=== PATIENT | female | born 1945 | race Caucasian/White ===

== ENCOUNTER 2016-12-18 14:34 | Emergency (ER) | payer OTHER ==
[2016-12-18 16:34] LABS: CALCIUM 9.3 mg/dL (8.5-10.1); CARBON DIOXIDE 30.4 mmol/L (21-32); CHLORIDE SERUM 102 mmol/L (98-107); CREATININE SERUM 1.2 mg/dL (0.6-1.0); GLUCOSE SERUM 96 mg/dL (74-106); SODIUM SERUM 139 mmol/L (136-145)
[2016-12-18 16:36] LABS: BASOPHIL % 0.4 % (0-2); PLATELET COUNT 243 x10^3mcL (130-400)
[2016-12-18 16:38] LABS: ALBUMIN 3.8 g/dL (3.4-5.0); ALKALINE PHOSPHATASE 118 U/L (46-116); ALT/SGPT 41 U/L (14-59); AST/SGOT 25 U/L (15-37); BILIRUBIN TOTAL 0.2 mg/dL (0.20-1.00); CHOLESTEROL 268 mg/dL (<200)
[2016-12-18 16:42] LABS: RED CELL DISTRIBUTION WIDTH 14.7 % (11.5-14.5)
[2016-12-18 19:00] VITALS: BP 136/77
== END 2016-12-18 19:00 | disposition left against medical advice (07) ==
LOC: ED 14:34
PROVIDERS: Specialist
DX: R20.2 Paresthesia of skin (principal); I10 Essential (primary) hypertension; E11.9 Type 2 diabetes mellitus without complications
CPT/HCPCS: 83880; G0480; Q0092

== ENCOUNTER 2018-12-20 22:50 | Emergency (ER) | payer OTHER ==
[~2018-12-20] VITALS: Ht 144.8 cm; Wt 55.3 kg
[2018-12-20 23:04] VITALS: Ht 144.8 cm; Wt 55.3 kg
[2018-12-21 00:01] LABS: PLATELET COUNT 244 x10^3mcL (130-400); RED CELL DISTRIBUTION WIDTH 14.4 % (11.5-14.5)
[2018-12-21 00:27] LABS: CALCIUM 8.9 mg/dL (8.5-10.1); CARBON DIOXIDE 28.6 mmol/L (21-32); CHLORIDE SERUM 96 mmol/L (98-107); CREATININE SERUM 1.6 mg/dL (0.6-1.0); GLUCOSE SERUM 122 mg/dL (74-106); POTASSIUM SERUM 3.4 mmol/L (3.5-5.1); SODIUM SERUM 135 mmol/L (136-145)
[2018-12-21 00:30] LABS: ALKALINE PHOSPHATASE 88 U/L (46-116); ALT/SGPT 43 U/L (14-59); AST/SGOT 21 U/L (15-37); LIPASE 200 IU/L (73-393); TOTAL PROTEIN, SERUM 7.1 g/dL (6.4-8.2)
[2018-12-21 00:33] LABS: ALBUMIN 2.5 g/dL (3.4-5.0)
[2018-12-21 00:34] LABS: BAND NEUTROPHIL 10 % (0-10); BASOPHIL 0 % (0-2); MONOCYTE 5 % (0-7); SEGMENTED NEUTROPHILS 74 % (37-75)
[2018-12-21 00:35] LABS: PLATELET MORPHOLOGY PLATELETS NORMAL; rbc morphology (normal/abnorm) NORMAL (NORMAL)
[2018-12-21 02:20] VITALS: BP 105/57
== END 2018-12-21 02:21 | disposition home or self-care (01) ==
LOC: ED 22:50
PROVIDERS: Emergency Medicine
DX: K29.70 Gastritis, unspecified, without bleeding (principal); E86.0 Dehydration; I10 Essential (primary) hypertension; E11.9 Type 2 diabetes mellitus without complications; Z90.49 Acquired absence of other specified parts of digestive tract
CPT/HCPCS: 82962; J2405; J7030

== ENCOUNTER 2018-12-23 17:42 | Inpatient (IN) | payer OTHER ==
[~2018-12-23] VITALS: Ht 144.8 cm; Wt 55.0 kg
--- NOTE | 2018-12-23 18:23 | NUR ---
SON BRINGS IN MOTHER BECAUSE [facility] HAD CALLED HIM WITH ABNORMAL LABS, WAS SEEN HERE 3 DAYS AGO FOR GI SYMPTOMS. HE REPORTS PT HAS A CHOLECYSTECTOMY 6 DAYS AGO, HOWEVER HAS NOT BEEN FEELING ANY MUCH BETTER. CONTINUES WITH EPIGATSRIC ABDOMINAL PAIN, MORE AFTER EATING. ALSO HAS DRY MOUTH. REPORTS NAUSEA HAS DECREASED SIGNIFICANTLY AFTER BEING PRESCRIBED ZOFRAN. PT CONTINUES WITH DECREASED APPPETITE. SKIN JAUNDICED IN COLOR NOTED, BUT SON STATES SHE LOOKS PALE IN COLOR. SON ALSO REPORTS SHE'S BEEN COMPLAIJING OF GENERALIZED BODY ACHE. DENIES FEVERS/CHILLS. RESP EVEN AND UNLABORED, DENIES ANY SOB OR CP. SAFETY MEAURES INPLACE, WILL CONT TO MONITOR. AWAITING MSE.
--- NOTE | 2018-12-23 19:08 | NUR ---
REPORT RECEIVED FROM ROSIE AGENCY RN
[2018-12-23 19:09] LABS: BASOPHIL % 0.1 % (0-2); PLATELET COUNT 303 x10^3mcL (130-400)
[2018-12-23 19:11] LABS: RED CELL DISTRIBUTION WIDTH 14.7 % (11.5-14.5)
[2018-12-23 19:17] LABS: CALCIUM 8.6 mg/dL (8.5-10.1); CARBON DIOXIDE 28.1 mmol/L (21-32); CHLORIDE SERUM 98 mmol/L (98-107); CREATININE SERUM 0.9 mg/dL (0.6-1.0); GLUCOSE SERUM 103 mg/dL (74-106); POTASSIUM SERUM 3.3 mmol/L (3.5-5.1); SODIUM SERUM 134 mmol/L (136-145)
[2018-12-23 19:23] LABS: ALKALINE PHOSPHATASE 93 U/L (46-116); ALT/SGPT 31 U/L (14-59); AST/SGOT 27 U/L (15-37); TOTAL PROTEIN, SERUM 6.9 g/dL (6.4-8.2)
[2018-12-23 19:26] LABS: ALBUMIN 2.2 g/dL (3.4-5.0)
[2018-12-23 19:53] LABS: UA SPECIFIC GRAVITY <=1.005 (1.005-1.035); microscopic required? YES; urine erythrocyte 1+ (NEGATIVE)
--- NOTE | 2018-12-23 20:09 | NUR ---
PER SON PT TAKES UNKNOWN BP MEDICATION 1 X PER DAY
--- NOTE | 2018-12-23 21:22 | NUR ---
REPORT GIVEN TO IVANNA GUTIERRES. IVANNA AWARE WE ARE WAITING FOR RESULTS OF CT BEFORE PT WILL BE ADMITTED UPSTAIRS
[2018-12-23 21:55] LABS: AMPHETAMINE QUAL UR NONE DETECTED (See below)
--- NOTE | 2018-12-23 23:14 | NUR ---
PRIMARY RN IVANNA MADE AWARE PT IS COMING UP AT THIS TIME
--- NOTE | 2018-12-23 23:17 | NUR ---
RECEIVED PT FROM ED VIA [facility], CAME IN DUE TO ABNORMAL LAB WORKS. AAOX4. DENIES HEADACHE/DIZZINESS. ABLE TO FOLLOW COMMANDS. NO SOB NOTED, LUNG SOUNDS CTA. DENIES CHEST PAIN/PRESSURE. DENIES ABDOMINAL PAIN/NAUSEA/VOMITING. ABDOMEN IS DISTENDED AND SOFT. BOWEL SOUNDS ACTIVE. HAD BM TODAY. VOIDS. W/ 5 SURGICAL INCISIONS ON THE ABDOMEN AND HAS ECCHYMOSIS AROUND THE SURGICAL INCISION ON THE UPPER MID ABDOMEN. W/ DERMABONDS ON THE SURGICAL INCISIONS, CDI. JAUNDICE NOTED. IV SITE ON THE RAC IS PATENT AND INTACT. SIDE RAILS UPX2. CALL LIGHT ON REACH. ENDORSED TO PRIMARY NURSE IVANNA FOR CONTINUITY OF CARE
[2018-12-23 23:28] VITALS: BP 147/58
[2018-12-23 23:39] VITALS: Ht 144.8 cm; Wt 55.0 kg
[2018-12-24 06:06] VITALS: BP 139/58
--- NOTE | 2018-12-24 06:28 | NUR ---
PT WITH C/O OF BACK ARCHING AT THE SCALE OF 6/10,PT WAS MEDICATED WITH NORCO 1 TAB PO ORDER AND WILL CONTINUE TO MONITOR.
--- NOTE | 2018-12-24 08:17 | NUR ---
RECEIVED REPORT FROM IVANNA GUTIERRES AT 0705. PATIENT AND PATIENT'S SON INSISTING THAT THEY DO NOT WANT TO BE IN THE HOSPITAL AND PLAN TO LEAVE REGARDLESS OF DOCTOR RECOMMENDATIONS. DISCUSSED IN DETAIL WITH ASSISTANCE OF STUDENT NURSECANDELARIA, WHO IS FLUENT IN [place], NEED FOR IV ANTIBIOTICS, BACTEREMIA, POSSIBILITY OF ABSCESS IN ABDOMEN, NEED FOR ULTRASOUND. THEY CONTINUE TO REFUSE AND INSIST THEY WANT TO LEAVE. PRINTED AMA FORMS WHICH PATIENT'S SON SIGNED PER SON, SHE IS NOT ABLE TO WRITE NAME. PATIENT VERBALLY AGREES TO LEAVE WITH SON AND REFUSES FURTHER MEDICAL TREATMENT. CHARGE NURSENAKUL INFORMED. DR. RIVERA PAGED AND SHE CAME TO ROOM AND DISCUSSED IN DETAIL WITH SON NEED FOR PATIENT TO RECEIVE TREATMENT IN HOSPITAL. SHE ALSO EMPHASIZED THAT IF THEY LEAVE AMA, THEY MUST FOLLOW UP WITH SURGEON TODAY, THAT PATIENT MAY HAVE ABSCESS AND DEFINITELY HAS BLOOD INFECTION REQUIRING TREATMENT. SON AND PATIENT AGREE TO ACCEPT RISK AND LEAVE AMA. SIGNS FORMED AND PLACED IN CHART. IV TO LAC REMOVED, SITE WITHOUT COMPLICATIONS. PATIENT GOT DRESSED AND IS AMBULATING, STEADY GAIT, NO ACUTE DISTRESS. STUDENT NURSECANDELARIA, ESCORTED PATIENT FROM UNIT.
== END 2018-12-24 08:30 | disposition left against medical advice (07) | DRG 720 ==
LOC: ED 17:42 → MU 20:26
PROVIDERS: Specialist; ADMIT Family Medicine
DX: A41.9 Sepsis, unspecified organism (principal); E43 Unspecified severe protein-calorie malnutrition; K65.1 Peritoneal abscess; J18.9 Pneumonia, unspecified organism; D63.8 Anemia in other chronic diseases classified elsewhere; T81.43XA Infection following a procedure, organ and space surgical site, initial encounter; E87.1 Hypo-osmolality and hyponatremia; E87.6 Hypokalemia; I10 Essential (primary) hypertension; Y83.6 Removal of other organ (partial) (total) as the cause of abnormal reaction of the patient, or of later complication, without mention of misadventure at the time of the procedure; Y92.009 Unspecified place in unspecified non-institutional (private) residence as the place of occurrence of the external cause; Z68.24 Body mass index [BMI] 24.0-24.9, adult
CPT/HCPCS: G0378; J0696; J1956; J3490; J7030; J7060